=== PATIENT | female | born 1975 | race Caucasian/White ===

== ENCOUNTER → 2017-07-11 | Outpatient (CLI) | payer OTHER | LOC: M.CT 14:00 | DX: N83.202 Unspecified ovarian cyst, left side (principal); N85.4 Malposition of uterus ==

== ENCOUNTER → 2017-07-22 | Outpatient (CLI) | payer OTHER | LOC: M.MRI 07:20 | DX: N28.1 Cyst of kidney, acquired (principal); K76.89 Other specified diseases of liver; R93.2 Abnormal findings on diagnostic imaging of liver and biliary tract ==